=== PATIENT | female | born 1960 | race Caucasian/White ===

== ENCOUNTER → 2023-04-30 | Outpatient (CLI) | payer OTHER ==
[~2023-04-30] VITALS: Ht 157.5 cm; Wt 76.2 kg
[~2023-04-30] MED LIST: ADENOSINE 64 MG in GIVE UN-DILUTED 0 ML IV ONE
== END | disposition home or self-care (01) ==
LOC: XYW 08:46
PROVIDERS: ATTEND Internal Medicine
DX: I48.0 Paroxysmal atrial fibrillation (principal); I10 Essential (primary) hypertension; G90.3 Multi-system degeneration of the autonomic nervous system; Z87.19 Personal history of other diseases of the digestive system
CPT/HCPCS: 78452; 93017; A9500; J0153